=== PATIENT | male | born 1960 ===

== ENCOUNTER 2019-12-21 08:00 | Outpatient (CLI) | payer OTHER ==
[2019-12-21 18:12] LABS: LYMPHOCYTES %,BODY FLUID 14
[2019-12-21 18:13] LABS: BF CLARITY TURBID; BF COLOR RED; BF SOURCE SYNOVIAL
== END 2019-12-21 23:59 | disposition home or self-care (01) ==
LOC: LAB.WCP 08:00
PROVIDERS: ATTEND Nurse Practitioner Family
DX: M71.021 Abscess of bursa, right elbow (principal)
CPT/HCPCS: 36415; 86140; 87040; 87070; 87181; 87205; 89051

== ENCOUNTER 2020-05-18 08:35 | Outpatient (CLI) | payer OTHER ==
[2020-05-18 11:47] LABS: BASOPHILS # (AUTO) 0.1 10^3/uL (0.0-0.1); BASOPHILS % (AUTO) 0.9 %; EOSINOPHILS # (AUTO) 0.1 10^3/uL (0.0-0.7); EOSINOPHILS % (AUTO) 2.2 %; HGB - HEMOGLOBIN 15.4 g/dL (14.0-18.0); LYMPHOCYTES # (AUTO) 1.8 10^3/uL (1.5-3.5); LYMPHOCYTES % (AUTO) 31.4 %; MEAN CORPUSCULAR HEMOGLOBIN 34.5 pg (27.0-31.0); MEAN CORPUSCULAR HGB CONC 34.8 g/dL (32.0-36.0); MEAN CORPUSCULAR VOLUME 98.9 fL (80.0-94.0); MEAN PLATELET VOLUME 10.3 fL (7.4-11.4); MONOCYTES # (AUTO) 0.7 10^3/uL (0.0-1.0); MONOCYTES % (AUTO) 12.9 %; NEUTROPHILS # (AUTO) 2.9 10^3/uL (1.5-6.6); NEUTROPHILS % (AUTO) 52.4 %; PLT - PLATELET COUNT 239 10^3/uL (130-450); RED BLOOD COUNT 4.47 10^6/uL (4.70-6.10); RED CELL DISTRIBUTION WIDTH 11.5 % (12.0-15.0); WHITE BLOOD COUNT 5.6 x10^3/uL (4.8-10.8)
[2020-05-18 11:57] LABS: ALBUMIN 4.6 g/dL (3.2-5.5); ALBUMIN/GLOBULIN RATIO 1.6 (1.0-2.2); ALKALINE PHOSPHATASE 56 IU/L (42-121); ALT ALANINE AMINOTRANSFERASE 72 IU/L (10-60); AST ASPARTATE AMINOTRANSFERASE 36 IU/L (10-42); BUN - BLOOD UREA NITROGEN 20 mg/dL (6-20); CALCIUM 9.5 mg/dL (8.5-10.3); CARBON DIOXIDE - CO2 27 mmol/L (21-32); CHLORIDE 101 mmol/L (101-111); CHOL/HDL RATIO 6.6 (<5.0); CHOLESTEROL 296 mg/dL; CREATININE 0.8 mg/dL (0.6-1.2); GLUCOSE 101 mg/dL (70-100); HDL CHOLESTEROL 45 mg/dL; LDL CHOLESTEROL,CALCULATED 191 mg/dL; LDL/HDL RATIO 4.2 (<3.6); SODIUM 134 mmol/L (135-145); TOTAL PROTEIN 7.4 g/dL (6.7-8.2); VLDL CHOLESTEROL 60 mg/dL
== END 2020-05-18 23:59 | disposition home or self-care (01) ==
LOC: LAB.WCP 08:35
PROVIDERS: ATTEND Nurse Practitioner Family
DX: E78.5 Hyperlipidemia, unspecified (principal); I10 Essential (primary) hypertension
CPT/HCPCS: 36415; 80053; 80061; 83721; 85025

== ENCOUNTER 2020-10-23 07:39 | Outpatient (CLI) | payer OTHER ==
--- NOTE | 2020-10-23 10:35 | Ultrasound Report ---
PROCEDURE: Pelvic Limited or F/U INDICATIONS: HX OF INGUINAL/UMBILICAL HERNIA TECHNIQUE: Real-time transabdominal scanning was performed of the pelvic organs, with image documentation. COMPARISON: None. FINDINGS: Prior left inguinal hernia repair can be seen. No findings of recurrent hernia are seen, including wi th Valsalva maneuver. No masses or enlarged lymph nodes are seen. IMPRESSION: Negative for recurrent left inguinal hernia. Reviewed by: Cayden White MD on 10/23/2020 9:34 AM [facility] Approved by: Cayden White MD on 10/23/2020 9:34 AM [facility] Station ID: [id number]
--- NOTE | 2020-10-23 10:37 | Ultrasound Report ---
PROCEDURE: Abdomen Limited INDICATIONS: HX OF UMBILICAL/INGUINAL HERNIA TECHNIQUE: Real-time focused scanning was performed of the abdomen, with image documentation. COMPARISON: Correlation is made with the accompanying pelvis ultrasound 10/23/2020 FINDINGS: There is a fat-containing umbilical hernia seen that measures up to 9 x 12 mm, with Valsal va maneuver. This hernia is seen containing both fat and bowel. The bowel reduces, yet the fatty port ion remains and is not frankly reducible. IMPRESSION: Umbilical hernia seen, which contains fat and bowel. The pelvic portion of the hernia is reducible. Please consider surgical consultation. Reviewed by: Cayden White MD on 10/23/2020 9:36 AM [facility] Approved by: Cayden White MD on 10/23/2020 9:36 AM [facility] Station ID: [id number]
== END 2020-10-23 07:40 | disposition home or self-care (01) ==
LOC: DI 07:39
PROVIDERS: ATTEND Nurse Practitioner Family
DX: K42.9 Umbilical hernia without obstruction or gangrene (principal); Z87.19 Personal history of other diseases of the digestive system

== ENCOUNTER 2021-02-07 18:32 | Outpatient (CLI) | payer OTHER | END 2021-02-07 18:33 | disposition home or self-care (01) | LOC: COV 18:32 | PROVIDERS: ATTEND Surgery | DX: Z01.812 Encounter for preprocedural laboratory examination (principal); K42.9 Umbilical hernia without obstruction or gangrene; Z20.822 Contact with and (suspected) exposure to COVID-19 ==

== ENCOUNTER 2021-02-10 06:24 | Day surgery (SDC) | payer OTHER ==
[~2021-02-10 06:24] MED LIST: ceFAZolin 2 GM/50 ML 2 GM/50 ML BAG IV ONE
[2021-02-10] MEDS ORDERED: LACTATED RINGERS 1,000 ML IV ONE ×2 (06:26→09:56)
[2021-02-10] MEDS ORDERED: KETOROLAC 30 MG/ML VIAL IVP ONE (07:09)
--- NOTE | 2021-02-10 07:12 | ANESTHESIA ---
Pre-Anesthesia VS, & Labs - Diagnosis Symptomatic umbilical hernia - Procedure Laparoscopic umbilical hernia repair with mesh Vital Signs: Temp Pulse Resp BP Pulse Ox 35.9 C L 57 L 14 130/88 H 96 02/10/21 06:29 02/10/21 06:29 02/10/21 06:29 02/10/21 06:29 02/10/21 06:29 Height: 6 ft Weight (kg): 97 kg Body Mass Index: 29.0 BMI Classification: Overweight - NPO >8 hours Home Medications and Allergies Home Medications: Ambulatory Orders Acetaminophen [Tylenol] 650 mg PO Q6H PRN 02/02/21 Ibuprofen [Motrin] 600 mg PO Q6H PRN 02/02/21 Lisinopril/Hydrochlorothiazide [Zestoretic 20-12.5 mg Tablet] 1 each PO DAILY 02/02/21 Active Medications Ketorolac Tromethamine (Ketorolac 30 Mg/Ml Vial) 30 mg IVP ONCE ONE Stop: 02/10/21 07:10 Acetaminophen [Tylenol] 650 mg PO Q6H PRN 02/02/21 Ibuprofen [Motrin] 600 mg PO Q6H PRN 02/02/21 Lisinopril/Hydrochlorothiazide [Zestoretic 20-12.5 mg Tablet] 1 each PO DAILY 02/02/21 Allergies/Adverse Reactions: Allergies Allergy/AdvReac Type Severity Reaction Status Date / Time ciprofloxacin [From Cipro] Allergy couldn't Verified 02/02/21 11:20 sleep varenicline [From Chantix] Allergy depressed Verified 02/02/21 11:20 Anes History & Medical History - Anesthetic History Anesthesia Complications: reports: No previous complications - Medical History Cardiovascular: reports: Hypertension Pulmonary: reports: None Gastrointestinal: reports: None Urinary: reports: Kidney stones Neuro: reports: None Musculoskeletal: reports: Osteoarthritis Endocrine/Autoimmune: reports: None Blood Disorders: reports: None Skin: reports: None Smoking Status: Former smoker (quit 4 years ago.) Psychosocial: reports: Alcohol (3 times per week, 2-3 drinks of vodka) History of Cancer?: No - Surgical History General: reports: Colonoscopy Orthopedic: reports: Amputation Exam General: Alert, Oriented x3, Cooperative, No acute distress Dental: Other (veneers) Mouth Openin Fingerbreadth Neck Mobility: Normal Mallampati classification: II Thyromental Distance: 4-6 cm Mental/Cognitive Status: Alert/Oriented X3, Normal for patient Plan Anesthesia Type: General Consent for Procedure(s) Verified and Reviewed: Yes Code Status: Attempt Resuscitation ASA classification: 2-Mild systemic disease Is this case an emergency?: No
[2021-02-10] MEDS ORDERED: MORPHINE 2 MG/ML CARPUJECT IVP PRN (07:21)
[2021-02-10] MEDS ORDERED: ATROPINE ABBOJECT 1 MG/10 ML SYRINGE IVP PRN (07:21)
[2021-02-10] MEDS ORDERED: ONDANSETRON 4 MG/2 ML VIAL IVP PRN ×2 (07:21→09:55)
[2021-02-10] MEDS ORDERED: HYDROmorphone 0.5 MG/0.5 ML SYRINGE IVP PRN (07:21)
[2021-02-10] MEDS ORDERED: NALOXONE 0.4 MG/ML VIAL IVP PRN (07:21)
[2021-02-10] MEDS ORDERED: fentaNYL 100 MCG/2 ML VIAL IVP PRN (07:21)
[2021-02-10] MEDS ORDERED: PROPOFOL 200 MG/20 ML VIAL IVP ONE (07:26)
[2021-02-10] MEDS ORDERED: ceFAZolin 1 GM VIAL ONE (07:27)
[2021-02-10] MEDS ORDERED: MIDAZOLAM 2 MG/2 ML VIAL ONE (07:27)
[2021-02-10] MEDS ORDERED: BUPIVACAINE 0.5% PF 30 ML VIAL ONE (07:27)
[2021-02-10] MEDS ORDERED: ROCURONIUM 50 MG/5 ML VIAL ONE (07:27)
[2021-02-10] MEDS ORDERED: LIDOCAINE MPF 2%-EPI 1:200000 20 ML VIAL ONE (07:27)
[2021-02-10] MEDS ORDERED: fentaNYL 100 MCG/2 ML VIAL ONE ×2 (07:28→09:34)
[2021-02-10] MEDS ORDERED: DEXAMETHASONE 4 MG/ML VIAL ONE (07:30)
[2021-02-10] MEDS ORDERED: ONDANSETRON 4 MG/2 ML VIAL ONE (07:30)
[2021-02-10] MEDS ORDERED: LACTATED RINGERS 1,000 ML IV SCH (08:00)
[2021-02-10] MEDS ORDERED: BUPIVACAINE 0.5% PF 30 ML VIAL INFIL ONE ×2 (08:58)
[2021-02-10] MEDS ORDERED: LIDOCAINE 2%-EPI 1:100000 20 ML MDV SUBQ ONE ×2 (08:59)
[2021-02-10] MEDS ORDERED: oxyCODONE 5 MG TABLET PO PRN (09:55)
--- NOTE | 2021-02-10 10:09 | OPERATIVE REPORT ---
Operative Report - General Procedure Date: 02/10/21 Planned Procedure: 1. Diagnostic laparoscopy 2. Laparoscopic adhesiolysis 3. Complex umbilical hernia repair 4. Laparoscopic Intraperitoneal Onlay Mesh Pre-Op Diagnosis: Symptomatic umbilical hernia. Procedure Performed: 1. Diagnostic laparoscopy 2. Laparoscopic adhesiolysis 3. Complex umbilical hernia repair 4. Laparoscopic Intraperitoneal Onlay Mesh Post Op Diagnosis: Same. Abdominal adhesions. - Procedure Note Primary Surgeon: Yisel Secondary Surgeon: Michael Anesthesia Provider: Alex Anesthesia Technique: General ET tube, Local Pathology: Umbilical hernia Estimated Blood Loss (mL): 5 Indications: See EMR. Symptomatic umbilical hernia. Findings: Adhesions. Incarcerated omentum. Hernia sac resected and omentum without any concerns for ischemia. Good apposition of mesh. Complications: None - Other Other Information/Narrative: Findings: 1. Adhesions. Incarcerated omentum. Hernia sac resected and omentum without any concerns for ischemia. Good apposition of mesh. 2. Umbilical hernia large performed for primary repair after dissection and IPOM performed using echo ventral light ST implant 3. No inadvertent injury, hemostatic, ultimately successful repair 4. Trochars were as follows: A. Umbilical site B. Right abdominal trocar 5 mm D. Left upper quadrant 5 mm E. Left lower quadrant 5 mm Procedure Report: Patient was taken to the operating room placed supine on the operating table. Informed consent was already obtained. Patient was induced for general endotracheal anesthesia. Patient at this time was placed for Spears catheter. Patient was offloaded and padded. Patient was prepped and draped in the usual sterile fashion. Timeout was called and agreed to by all in the room. A plan access point was incised circumlinear umbilical incision was made. Patient had a large known umbilical hernia and thus we would start umbilical access through the site for placement of both the umbilical and right upper quadrant mesh and proceed with primary repair through the site after accessory ports placed. An incision was made sharply. Skin and subcutaneous tissues were divided using Bovie electrocautery. Fascia was encountered it was sharply divi ded. Muscle was bluntly divided. Posterior fascia was elevated and sharply divided. Abdominal cavity was entered without incident. At this time the large defect was appreciated and opened. Omentum and umbilical hernia sac were resected and sent for permanent pathology. We placed the Matthews trocar and insufflated the abdomen to 15 mmHg with no complication. To reiterate, the defect was very large greater than 10cm and was closed vertically as listed elsewhere. Prior to definitive closure and mesh was chosen from the [employer] family of products ST with Seprafilm covering/coating echo ventral light synthetic 15 cm x 20 cm. We proceeded with laparoscopic adhesiolysis and evaluation. Please see findings. Trocars were placed as follows for laparoscopic adhesiolysis: A. Umbilical site B. Right abdominal trocar 5 mm D. Left upper quadrant 5 mm E. Left lower quadrant 5 mm All trocars were placed under direct laparoscopic visualization. We proceeded with brief adhesiolysis of anterior abdominal adhesions. Thereafter, we placed mesh for the umbilical hernia using echo ventral light ST implant. After closed the umbilical defect with 6 interrupted's [id number] of 0 V icryl. Please note that the mesh implant was already rolled and inserted. At this point we reinsufflated the abdomen without any complication and through the remaining accessory ports with the Matthews already removed during umbilical closure we proceeded to secure the mesh with absorbable tacking device. There is good of approximation and fixation of the mesh at this time using the a scaffold suture to oppose the mesh to the anterior abdominal wall. At this time we proceeded to affix the mesh using approximate absorbable tacks which was facilitated using the 3 trochars in the left and right upper and lower quadrants. This was performed sequentially through all trocars in a 360-degree fashion. The mesh was examined once again, and the mesh was documented by photography showing that it was clearly lying flat anteriorly against the abdominal wall. Pictures were taken of the mesh. The abdomen was then checked for hemostasis. Small bowel was run without any concern for any occult pathology. Omentum was mobilized over the bowel. The abdomen was desufflated the remaining right upper and right lower quadrant trocars as well as the left lower quadrant trocar which were removed thereafter without any complication. Any residual air was also decompressed through the drain site as well. All trocar sites were closed with skin efrain and performed for local blocks with local anesthetic. We proceeded to perform umbilicoplasty and the umbilicus was reconstructed using 0 Vicryl and 3-0 Vicryl suture. Umbilical incision was also reapproximated ultimately for the skin using skin efrain. All sites were dressed in Tegaderm and Telfa. Patient tolerated procedure well which was no complication. All counts for sponges, needles, and instrument were correct at the conclusion of the case. The patient was allowed to wake from anesthesia without difficulty. Please note that voice recognition software was used to transcribe this note and inadvertent errors might persist in spite of review and editing. I am obliged to you for your attention. I am thankful to you for allowing me to participate with you in this care of this patient.
--- NOTE | 2021-02-10 10:13 | PROVIDER PROGRESS NOTE ---
Progress Note Procedure Date: 02/10/21 Planned Procedure: 1. Diagnostic laparoscopy 2. Laparoscopic adhesiolysis 3. Complex umbilical hernia repair 4. Laparoscopic Intraperitoneal Onlay Mesh Pre-Op Diagnosis: Symptomatic umbilical hernia. Procedure Performed: 1. Diagnostic laparoscopy 2. Laparoscopic adhesiolysis 3. Complex umbilical hernia repair 4. Laparoscopic Intraperitoneal Onlay Mesh Post Op Diagnosis: Same. Abdominal adhesions. - Procedure Note Primary Surgeon: Yisel Secondary Surgeon: Michael Anesthesia Provider: Alex Anesthesia Technique: General ET tube, Local Pathology: Umbilical hernia Estimated Blood Loss (mL): 5 Indications: See EMR. Symptomatic umbilical hernia. Findings: Adhesions. Incarcerated omentum. Hernia sac resected and omentum without any concerns for ischemia. Good apposition of mesh. Complications: None
[2021-02-10 10:24] VITALS: BP 135/89
--- NOTE | 2021-02-10 12:02 | ANESTHESIA POST OP EVALUATION ---
Anesthesia Post Eval - Post Anesthesia Eval Vitals: Last Vital Signs Temp 36.3 C L 02/10/21 10:21 Pulse 62 02/10/21 10:21 Resp 16 02/10/21 10:21 BP 135/89 H 02/10/21 10:21 Pulse Ox 93 02/10/21 10:21 CV Function Including HR & BP: Stable Pain Control: Satisfactory Nausea & Vomiting: Negative Mental Status: Baseline Respiratory Status: Airway Patent Hydration Status: Satisfactory Anesthesia Complications: None
== END 2021-02-10 06:25 | disposition home or self-care (01) ==
LOC: SDS 06:24
PROVIDERS: ATTEND Surgery
PROC: 0WUF4JZ Supplement Abdominal Wall with Synthetic Substitute, Percutaneous Endoscopic Approach (ICD-10-PCS; principal; 2021-02-10 07:30)
DX: K42.0 Umbilical hernia with obstruction, without gangrene (principal); E66.3 Overweight; Z68.29 Body mass index [BMI] 29.0-29.9, adult; Z87.891 Personal history of nicotine dependence
CPT/HCPCS: 49653; C1781; J0690; J7120

== ENCOUNTER 2021-07-13 08:52 | Outpatient (CLI) | payer OTHER ==
--- NOTE | 2021-07-14 08:46 | XRAY Report ---
PROCEDURE: Thoracic Spine 3 View INDICATIONS: CHRONIC RIGHT THORACIC RIB PAIN S/P FALL 12 MONTH AGO TECHNIQUE: 3 views of the thoracic spine were acquired. COMPARISON: None. FINDINGS: Bones: No fractures or dislocations. Small anterior and lateral flowing osteophytes in the midthora cic spine. The disc spaces are appropriately maintained. No suspicious bony lesions. 12 pairs of rib s are noted, and appear intact where visualized. Soft tissues: No paravertebral stripe thickening. IMPRESSION: No vertebral body compression fracture. Reviewed by: Tami Wolfe MD on 07/14/2021 8:45 AM PDT Approved by: Tami Wolfe MD on 07/14/2021 8:45 AM PDT Station ID: [id number]
--- NOTE | 2021-07-14 08:48 | XRAY Report ---
PROCEDURE: Ribs w/PA Chest RT INDICATIONS: CHRONIC RIGHT THORACIC RIB PAIN S/P FALL 12 MONTH AGO TECHNIQUE: 3 views of the right ribs were acquired, along with a single view chest. COMPARISON: None FINDINGS: Surgical changes and devices: None. Bones and chest wall: No fractures or dislocations. No suspicious bony lesions. Overlying soft tis sues appear unremarkable. Lungs and pleura: No pleural effusions or pneumothorax. Lungs appear clear. Mediastinum: Mediastinal contours appear normal. Heart size is normal. IMPRESSION: 1. No visible chronic rib fractures. 2. Symmetrically inflated lungs without findings to suggest chronic posttraumatic change. Reviewed by: Tami Wolfe MD on 07/14/2021 8:47 AM PDT Approved by: Tami Wolfe MD on 07/14/2021 8:47 AM PDT Station ID: [id number]
== END 2021-07-13 23:59 | disposition home or self-care (01) ==
LOC: DI.N 08:52
PROVIDERS: ATTEND Physician Assistant Medical
DX: R07.81 Pleurodynia (principal); M54.6 Pain in thoracic spine

== ENCOUNTER 2022-01-19 07:08 | Outpatient (CLI) | payer OTHER ==
[2022-01-19 13:05] LABS: BASOPHILS # (AUTO) 0.1 10^3/uL (0.0-0.1); EOSINOPHILS # (AUTO) 0.2 10^3/uL (0.0-0.7); EOSINOPHILS % (AUTO) 2.6 %; HCT - HEMATOCRIT 45.5 % (42.0-52.0); HGB - HEMOGLOBIN 15.4 g/dL (14.0-18.0); LYMPHOCYTES % (AUTO) 32.5 %; MEAN CORPUSCULAR HEMOGLOBIN 33.2 pg (27.0-31.0); MEAN CORPUSCULAR HGB CONC 33.8 g/dL (32.0-36.0); MEAN CORPUSCULAR VOLUME 98.1 fL (80.0-94.0); MEAN PLATELET VOLUME 10.8 fL (7.4-11.4); MONOCYTES # (AUTO) 0.7 10^3/uL (0.0-1.0); MONOCYTES % (AUTO) 11.4 %; NEUTROPHILS # (AUTO) 3.2 10^3/uL (1.5-6.6); NEUTROPHILS % (AUTO) 52.3 %; PLT - PLATELET COUNT 251 10^3/uL (130-450); RED BLOOD COUNT 4.64 10^6/uL (4.70-6.10); RED CELL DISTRIBUTION WIDTH 11.6 % (12.0-15.0)
[2022-01-19 13:15] LABS: ESTIMATED AVERAGE GLUCOSE 111 mg/dL (70-100); HEMOGLOBIN A1c% 5.5 % (4.27-6.07)
[2022-01-19 13:19] LABS: ALBUMIN 4.5 g/dL (3.2-5.5); ALBUMIN/GLOBULIN RATIO 1.6 (1.0-2.2); ALKALINE PHOSPHATASE 47 IU/L (42-121); ALT ALANINE AMINOTRANSFERASE 56 IU/L (10-60); AST ASPARTATE AMINOTRANSFERASE 29 IU/L (10-42); BILIRUBIN,TOTAL 0.8 mg/dL (0.2-1.0); BUN - BLOOD UREA NITROGEN 25 mg/dL (6-20); CALCIUM 9.9 mg/dL (8.5-10.3); CARBON DIOXIDE - CO2 27 mmol/L (21-32); CHLORIDE 104 mmol/L (101-111); CHOL/HDL RATIO 6.1 (<5.0); CHOLESTEROL 285 mg/dL; CREATININE 0.8 mg/dL (0.6-1.2); GFR - MDRD 98 (>89); GLUCOSE 100 mg/dL (70-100); HDL CHOLESTEROL 47 mg/dL; LDL CHOLESTEROL,CALCULATED 191 mg/dL; LDL/HDL RATIO 4.1 (<3.6); POTASSIUM 4.5 mmol/L (3.5-5.0); SODIUM 139 mmol/L (135-145); TOTAL PROTEIN 7.4 g/dL (6.7-8.2); TRIGLYCERIDES 234 mg/dL; VLDL CHOLESTEROL 47 mg/dL
[2022-01-19 13:26] LABS: THYROID STIMULATING HORMONE 3.23 uIU/mL (0.34-5.60)
== END 2022-01-19 07:09 | disposition home or self-care (01) ==
LOC: LAB.N 07:08
PROVIDERS: ATTEND Physician Assistant
DX: I10 Essential (primary) hypertension (principal); E78.5 Hyperlipidemia, unspecified; Z12.5 Encounter for screening for malignant neoplasm of prostate; Z13.1 Encounter for screening for diabetes mellitus
CPT/HCPCS: 36415; 80053; 80061; 83036; 83721; 84153; 84443; 85025

== ENCOUNTER 2023-01-24 08:59 | Outpatient (CLI) | payer OTHER ==
--- NOTE | 2023-01-24 11:44 | XRAY Report ---
PROCEDURE: Foot 3 View LT INDICATIONS: WT FOOT PAIN,LEFT TECHNIQUE: 3 views of the foot were acquired. COMPARISON: None. FINDINGS: Bones: No fractures or dislocations. No suspicious bony lesions. Severe joint space narrowing with marked osteophytosis of the second MTP. Plantar calcaneal enthesophyte. Soft tissues: No suspicious soft tissue calcifications or masses. IMPRESSION: Severe second MTP osteoarthritis. Reviewed by: Kj Alex on 01/24/2023 11:43 AM PDT Approved by: Kj Alex on 01/24/2023 11:43 AM PDT Station ID: [id number]
== END 2023-01-24 09:00 | disposition home or self-care (01) ==
LOC: DI 08:59
PROVIDERS: ATTEND Physician Assistant
DX: M19.072 Primary osteoarthritis, left ankle and foot (principal)

== ENCOUNTER 2023-02-15 13:35 | Outpatient (CLI) | payer OTHER ==
[2023-02-15 13:53] LABS: BASOPHILS # (AUTO) 0.1 10^3/uL (0.0-0.1); EOSINOPHILS # (AUTO) 0.1 10^3/uL (0.0-0.7); EOSINOPHILS % (AUTO) 2.2 %; HCT - HEMATOCRIT 44.4 % (42.0-52.0); HGB - HEMOGLOBIN 15.2 g/dL (14.0-18.0); LYMPHOCYTES # (AUTO) 1.8 10^3/uL (1.5-3.5); LYMPHOCYTES % (AUTO) 30.9 %; MEAN CORPUSCULAR HEMOGLOBIN 33.2 pg (27.0-31.0); MEAN CORPUSCULAR HGB CONC 34.2 g/dL (32.0-36.0); MEAN CORPUSCULAR VOLUME 96.9 fL (80.0-94.0); MEAN PLATELET VOLUME 9.1 fL (7.4-11.4); MONOCYTES # (AUTO) 0.5 10^3/uL (0.0-1.0); MONOCYTES % (AUTO) 9.1 %; NEUTROPHILS # (AUTO) 3.3 10^3/uL (1.5-6.6); NEUTROPHILS % (AUTO) 56.5 %; PLT - PLATELET COUNT 214 10^3/uL (130-450); RED BLOOD COUNT 4.58 10^6/uL (4.70-6.10); RED CELL DISTRIBUTION WIDTH 11.9 % (12.0-15.0); WHITE BLOOD COUNT 5.9 x10^3/uL (4.8-10.8)
[2023-02-15 14:22] LABS: THYROID STIMULATING HORMONE 2.09 uIU/mL (0.34-5.60)
[2023-02-15 14:24] LABS: ALBUMIN 4.1 g/dL (3.2-5.5); ALBUMIN/GLOBULIN RATIO 1.3 (1.0-2.2); BILIRUBIN,TOTAL 0.5 mg/dL (0.2-1.0); CALCIUM 9.5 mg/dL (8.5-10.3); CREATININE 0.8 mg/dL (0.6-1.2); POTASSIUM 3.6 mmol/L (3.5-5.0); TOTAL PROTEIN 7.3 g/dL (6.7-8.2)
[2023-02-15 14:29] LABS: CHOL/HDL RATIO 6.3 (<5.0); CHOLESTEROL 271 mg/dL; HDL CHOLESTEROL 43 mg/dL; TRIGLYCERIDES 636 mg/dL
[2023-02-15 14:46] LABS: LDL CHOLESTEROL,DIRECT 158 mg/dL; LDLD/HDL RATIO 3.7 (<3.6)
[2023-02-16 12:07] LABS: ESTIMATED AVERAGE GLUCOSE 117 mg/dL (70-100); HEMOGLOBIN A1c% 5.7 % (4.27-6.07)
== END 2023-02-15 13:36 | disposition home or self-care (01) ==
LOC: LAB 13:35
PROVIDERS: ATTEND Physician Assistant
DX: I10 Essential (primary) hypertension (principal); E78.5 Hyperlipidemia, unspecified; Z12.5 Encounter for screening for malignant neoplasm of prostate
CPT/HCPCS: 36415; 80053; 80061; 83036; 83721; 84153; 84443; 85025

== ENCOUNTER 2023-09-05 07:47 | Outpatient (CLI) | payer OTHER ==
[2023-09-05 12:28] LABS: BUN - BLOOD UREA NITROGEN 19 mg/dL (6-20); CARBON DIOXIDE - CO2 29 mmol/L (21-32); CHLORIDE 102 mmol/L (101-111); CHOL/HDL RATIO 5.2 (<5.0); CHOLESTEROL 264 mg/dL; CREATININE 0.8 mg/dL (0.6-1.3); GFR - MDRD 98 (>89); GLUCOSE 106 mg/dL (74-104); HDL CHOLESTEROL 51 mg/dL; LDL CHOLESTEROL,CALCULATED 153 mg/dL; POTASSIUM 4.6 mmol/L (3.5-4.5); SODIUM 137 mmol/L (135-145); TRIGLYCERIDES 302 mg/dL (48-352); VLDL CHOLESTEROL 60 mg/dL
== END 2023-09-05 07:48 | disposition home or self-care (01) ==
LOC: LAB.N 07:47
PROVIDERS: ATTEND Physician Assistant
DX: I10 Essential (primary) hypertension (principal); E78.5 Hyperlipidemia, unspecified
CPT/HCPCS: 36415; 80048; 80061; 83721

== ENCOUNTER 2023-09-26 08:00 | Outpatient (CLI) | payer OTHER | END 2023-09-26 23:59 | disposition home or self-care (01) | LOC: LAB 08:00 | PROVIDERS: ATTEND Physician Assistant | DX: M70.20 Olecranon bursitis, unspecified elbow (principal) | CPT/HCPCS: 87070; 87181; 87205 ==

== ENCOUNTER 2023-11-12 15:40 | Outpatient (CLI) | payer OTHER ==
--- NOTE | 2023-11-13 12:38 | MRI Report ---
PROCEDURE: Elbow RT WO INDICATIONS: BURSITIS TECHNIQUE: Noncontrast coronal proton density fast spin echo and T2 fast spin echo with fat saturation, axial an d sagittal T1 spin echo and T2 fast spin echo with fat saturation through the elbow. COMPARISON: None. FINDINGS: Image quality: Excellent. Lateral structures: The lateral ulnar collateral ligament and radial collateral ligament both appear intact. There is moderate tendinosis of the proximal common extensor tendon with superimposed low gr safia partial intrasubstance tearing at the origin. Medial structures: Nonedematous ossification is seen along the course of the ulnar collateral ligamen t. The ligament itself is not well-visualized. The overlying common flexor tendon appears normal. Th e ulnar nerve appears mildly thickened at the level of the cubital tunnel. Anterior structures: Mild insertional tendinosis of the distal biceps tendon. The distal brachialis i nsertion is intact. No bicipitoradial bursal fluid. The median and radial neurovascular bundles valdez ear normal; no focal muscle atrophy to suggest nerve impingement. Posterior structures: The distal triceps tendon thickening is compatible with tendinosis. A prominent mildly edematous enthesophyte is seen at the posterior olecranon. Trace olecranon bursal thickening and fluid. Bone and cartilage: No bone marrow contusions or fractures. No osteochondral injuries. Small vicente nal osteophytes are present. IMPRESSION: 1.Prominent mildly edematous enthesophyte at the posterior olecranon, which may be secondary to super imposed contusion. There is moderate distal triceps tendinosis. 2.Trace olecranon bursal fluid and mild surrounding nonspecific subcutaneous edema. 3.Low-grade partial intrasubstance tearing of the common extensor tendon at the origin superimposed o n moderate tendinosis. 4.Ossification of the distal portion of the ulnar collateral ligament. The proximal ligament fibers a re not well visualized. 5.Thickening of the ulnar nerve nonspecific but can be seen in setting of ulnar neuritis. Recommend c orrelation with neurologic exam findings. Reviewed by: Chan Jack MD on 11/13/2023 12:37 PM [facility] Approved by: Chan Jack MD on 11/13/2023 12:37 PM PST Station ID: [id number]
== END 2023-11-12 15:41 | disposition home or self-care (01) ==
LOC: DI 15:40
PROVIDERS: ATTEND Physician Assistant
DX: M70.31 Other bursitis of elbow, right elbow (principal); M77.8 Other enthesopathies, not elsewhere classified; S56.511A Strain of other extensor muscle, fascia and tendon at forearm level, right arm, initial encounter; M67.823 Other specified disorders of tendon, right elbow

== ENCOUNTER 2024-03-18 08:04 | Outpatient (CLI) | payer OTHER ==
[2024-03-18 08:19] LABS: BASOPHILS # (AUTO) 0.1 10^3/uL (0.0-0.1); EOSINOPHILS # (AUTO) 0.2 10^3/uL (0.0-0.7); EOSINOPHILS % (AUTO) 4.5 %; HGB - HEMOGLOBIN 14.8 g/dL (14.0-18.0); LYMPHOCYTES # (AUTO) 1.8 10^3/uL (1.5-3.5); LYMPHOCYTES % (AUTO) 36.4 %; MEAN CORPUSCULAR HGB CONC 33.6 g/dL (32.0-36.0); MEAN PLATELET VOLUME 8.8 fL (7.4-11.4); MONOCYTES # (AUTO) 0.6 10^3/uL (0.0-1.0); MONOCYTES % (AUTO) 12.8 %; NEUTROPHILS # (AUTO) 2.2 10^3/uL (1.5-6.6); NEUTROPHILS % (AUTO) 45.1 %; PLT - PLATELET COUNT 187 10^3/uL (130-450); RED BLOOD COUNT 4.49 10^6/uL (4.70-6.10); RED CELL DISTRIBUTION WIDTH 11.9 % (12.0-15.0); WHITE BLOOD COUNT 4.9 x10^3/uL (4.8-10.8)
[2024-03-18 08:38] LABS: ALBUMIN 4.6 g/dL (3.2-5.5); ALBUMIN/GLOBULIN RATIO 1.7 (1.0-2.2); ALKALINE PHOSPHATASE 50 IU/L (42-121); ALT ALANINE AMINOTRANSFERASE 31 IU/L (10-60); AST ASPARTATE AMINOTRANSFERASE 23 IU/L (10-42); BILIRUBIN,TOTAL 0.6 mg/dL (0.2-1.0); BUN - BLOOD UREA NITROGEN 24 mg/dL (6-20); CALCIUM 9.8 mg/dL (8.5-10.3); CARBON DIOXIDE - CO2 26 mmol/L (21-32); CHLORIDE 105 mmol/L (101-111); CHOL/HDL RATIO 4.3 (<5.0); CHOLESTEROL 231 mg/dL; CREATININE 0.8 mg/dL (0.6-1.3); GFR - MDRD 97 (>89); GLUCOSE 104 mg/dL (74-104); HDL CHOLESTEROL 54 mg/dL; LDL CHOLESTEROL,CALCULATED 113 mg/dL; LDL/HDL RATIO 2.1 (<3.6); POTASSIUM 4.4 mmol/L (3.5-4.5); SODIUM 137 mmol/L (135-145); TOTAL PROTEIN 7.3 g/dL (6.4-8.9); TRIGLYCERIDES 320 mg/dL (48-352); VLDL CHOLESTEROL 64 mg/dL
[2024-03-18 08:52] LABS: THYROID STIMULATING HORMONE 3.18 uIU/mL (0.34-5.60)
== END 2024-03-18 08:05 | disposition home or self-care (01) ==
LOC: LAB 08:04
PROVIDERS: ATTEND Physician Assistant
DX: I10 Essential (primary) hypertension (principal); E78.5 Hyperlipidemia, unspecified; Z12.5 Encounter for screening for malignant neoplasm of prostate
CPT/HCPCS: 36415; 80053; 80061; 83721; 84153; 84443; 85025